=== PATIENT | male | born 2000 | race Caucasian/White ===

== ENCOUNTER 2020-04-03 10:50 | Emergency (ER) | payer SELFPAY | END 2020-04-03 11:25 | disposition home or self-care (01) | LOC: BURERS 10:50 | DX: J30.9 Allergic rhinitis, unspecified (principal); Z87.891 Personal history of nicotine dependence ==

== ENCOUNTER 2020-11-18 12:28 | Emergency (ER) | payer SELFPAY | END 2020-11-18 13:05 | disposition home or self-care (01) | LOC: BURERS 12:28 | DX: S90.32XA Contusion of left foot, initial encounter (principal); F17.290 Nicotine dependence, other tobacco product, uncomplicated; W20.8XXA Other cause of strike by thrown, projected or falling object, initial encounter ==

== ENCOUNTER 2022-07-01 14:43 | Emergency (ER) | payer OTHER, SELFPAY ==
[2022-07-01] MEDS ORDERED: Ibuprofen 800 MG TAB ONE (15:07)
[2022-07-01] MEDS ORDERED: Benzonatate 100 MG CAP ONE (15:07)
== END 2022-07-01 15:58 | disposition home or self-care (01) ==
LOC: BURERS 14:43
DX: B34.9 Viral infection, unspecified (principal); Z87.891 Personal history of nicotine dependence
CPT/HCPCS: 87804; 99283